=== PATIENT | female | born 1955 | race Hispanic/Latino ===

== ENCOUNTER 2017-07-03 13:23 | Emergency (ER) | payer BC, MEDICARE ==
[2017-07-03 13:23] VITALS: BMI 40.7
[2017-07-03 13:59] VITALS: RESP 18; TEMP 98.2
[2017-07-03] MEDS ORDERED: Vancomycin 1gm in NS 250ml 1 GM/250 ML BAG IVPB STA (14:23)
[2017-07-03 16:16] VITALS: BP 121/61; PULSE 84; O2SAT 95
--- NOTE | 2017-07-03 18:09 | ED PDOC ---
Arrival/HPI - General Chief Complaint: Abnormal Skin Integrity Time Seen by Provider: 07/03/17 14:23 Historian: Patient - History of Present Illness Narrative History of Present Illness (Text): 07/03/17 14:18 A 62 year old female, with no significant past medical history, presents to the emergency department complaining of abscess on chin. Patient reports having pimple on chin, and her dog licked the pimple. Afterwards, abscess became worse. Patient denies any pain to jaw movement, any fever, or any other complaints. PMD: Dr. Bains Past Medical History - Provider Review Nursing Documentation Reviewed: Yes - Infectious Disease Hx of Infectious Diseases: None - Tetanus Immunization Tetanus Immunization: Unknown - Cardiac Hx Cardiac Disorders: No Hx Circulatory Problems: Yes (DVT LEFT LEG) - Pulmonary Hx Respiratory Disorders: No Other/Comment: PE ON LEFT SIDE - Neurological Hx Neurological Disorder: No - HEENT Hx HEENT Disorder: No Other/Comment: WEARS RX GLASSES - Renal Hx Renal Disorder: No Other/Comment: BLADDER SLING - Endocrine/Metabolic Hx Endocrine Disorders: No - Hematological/Oncological Hx Blood Transfusions: Yes Hx Blood Transfusion Reaction: No - Integumentary Hx Dermatological Disorder: No - Musculoskeletal/Rheumatological Hx Falls: No - Gastrointestinal Hx Gastrointestinal Disorders: Yes Other/Comment: CONSTIPATION - Genitourinary/Gynecological Other/Comment: C SECTION,TUBAL LIGATION, urinary retention - Psychiatric Hx Depression: Yes Hx Emotional Abuse: No Hx Physical Abuse: No Hx Substance Use: No - Surgical History Hx Hysterectomy: Yes Hx Joint Replacement: Yes (bilat knees, shoulder) Hx Musculoskeletal Surgery: Yes Hx Orthopedic Surgery: Yes - Anesthesia Hx Anesthesia Reactions: No Hx Malignant Hyperthermia: No - Suicidal Assessment Feels Threatened In Home Enviroment: No Family/Social History - Physician Review Nursing Documentation Reviewed: Yes Family/Social History: No Known Family HX Smoking Status: Light Smoker < 10 Cigarettes Daily Hx Alcohol Use: No Hx Substance Use: No Hx Substance Use Treatment: No Allergies/Home Meds Allergies/Adverse Reactions: Allergies PNEUMONIA VACCINE Allergy (Uncoded 11/30/15 13:05) SWELLING Home Medications: Home Meds Medication Instructions Recorded Confirmed Apixaban [Eliquis] 5 mg PO DAILY 07/03/17 07/03/17 Review of Systems - Review of Systems Constitutional: absent: Fevers Musculoskeletal: Other (no pain with jaw movement) Skin: Abscess (chin) Physical Exam Vital Signs Reviewed: Yes Vital Signs Temp Pulse Resp BP Pulse Ox 07/03/17 16:16 84 18 121/61 95 07/03/17 13:23 98.2 F 98 H 18 123/59 L 91 L Temperature: Afebrile Blood Pressure: Normal Pulse: Regular Respiratory Rate: Normal Appearance: Positive for: Well-Appearing Pain Distress: None Mental Status: Positive for: Alert and Oriented X 3 - Systems Exam Head: Present: Other (erythematous abscess to chin) Medical Decision Making ED Course and Treatment: 07/03/17 14:20 Impression: 62 year old female with abscess on chin. Plan: -- Wound Culture and Gram Stain -- Vancomycin -- Reassess and disposition Prior Visits: Notes and results from previous visits were reviewed. Patient was last seen in the emergency department on 09/11/2015 for dysuria with coughing and fever. Patient was admitted. Progress Notes: 07/03/17 15:07 I&D procedure performed. Patient to follow-up 2-3 days. - Medication Orders Current Medication Orders: Discontinued Medications Vancomycin HCl (Vancomycin 1gm) 1 gm in 250 mls @ 167 mls/hr IVPB STAT STA PRN Reason: Protocol Stop: 07/03/17 15:52 Last Admin: 07/03/17 14:50 Dose: 167 mls/hr eMAR Start Stop Document 07/03/17 14:50 HI (Rec: 07/03/17 14:50 [id number]) Intravenous Solution Start Date 07/03/17 Start Time 14:50 - Scribe Statement The provider has reviewed the documentation as recorded by the Raine Green Provider Scribe Attestation: All medical record entries made by the Raine were at my direction and personally dictated by me. I have reviewed the chart and agree that the record accurately reflects my personal performance of the history, physical exam, medical decision making, and the department course for this patient. I have also personally directed, reviewed, and agree with the discharge instructions and disposition. Disposition/Present on Arrival - Present on Arrival Any Indicators Present on Arrival: No History of DVT/PE: No History of Uncontrolled Diabetes: No Urinary Catheter: No History of Decub. Ulcer: No History Surgical Site Infection Following: Orthopedic Procedures - Disposition Have Diagnosis and Disposition been Completed?: Yes Diagnosis: Abscess of chin Disposition: HOME/ ROUTINE Disposition Time: 14:45 Patient Problems: Current Active Problems Problem Status Onset Abscess of chin Acute Condition: GOOD Discharge Instructions (ExitCare): Abscess (ED) Additional Instructions: Thank you for letting us take care of you today. The emergency medical care you received today was directed at your acute symptoms. If you were prescribed any medication, please fill it and take as directed. It may take several days for your symptoms to resolve. Return to the Emergency Department if your symptoms worsen, do not improve, or if you have any other problems. Please contact your doctor or call one of the physicians/clinics you have been referred to that are listed on the Patient Visit Information form that is included in your discharge packet. Bring any paperwork you were given at discharge with you along with any medications you are taking to your follow up visit. Our treatment cannot replace ongoing medical care by a primary care provider (PCP) outside of the emergency department. Thank you for allowing the [facility] team to be part of your care today. Follow up with your doctor or the emergency room in 1-2 days for a wound check. Prescriptions: Cephalexin [cephalexin] 500 mg PO Q6 #28 cap Ibuprofen [Motrin] 600 mg PO Q6 PRN #20 tab PRN Reason: Pain, Moderate (4-7) Sulfamethoxazole/Trimethoprim [Bactrim DS 800 mg-160 mg] 1 tab PO BID #14 tab Referrals: Ángel Bains JD, MD [Primary Care Provider] - Follow up with primary Forms: [employer] (French)
== END 2017-07-03 19:30 | disposition home or self-care (01) ==
LOC: ED 13:23
DX: L02.01 Cutaneous abscess of face (principal); F17.210 Nicotine dependence, cigarettes, uncomplicated